=== PATIENT | male | born 1970 | race Caucasian/White ===

== ENCOUNTER 2019-11-21 07:51 | Outpatient (CLI) | payer BC ==
--- NOTE | 2019-11-21 09:34 | MRI ---
RIGHT ELBOW MRI WITHOUT IV CONTRAST: HISTORY: Rupture of right distal biceps tendon. FINDINGS: Right upper extremity pain following an injury. Multiplanar, multisequence MRI examination of the right elbow is performed. There is extensive abnormal signal and irregular thinning and evidence for partial tearing of the dis vitaly biceps tendon with some partial retraction. The short head portion of the tendon still appears t o be at least partially intact with complete tearing and retraction of the long-head portion of the t endon. There is some focal increased signal involving the undersurface of the common extensor tendon , evidence for partial thickness undersurface tearing. A small focus of interosseous cystic change i n the distal central subchondral portion of the radius. The ulnar collateral ligament is intact. La teral collateral ligament complex appears unremarkable. The triceps tendon appears unremarkable. Th e lacertus fibrosus appears intact, but shows evidence for sprain. IMPRESSION: Evidence for an incomplete distal biceps tendon tear with complete tearing and retraction of the long -head portion of the biceps tendon with an intact but somewhat thinned short head portion with an int act lacertus fibrosus. Evidence for of the undersurface interstitial tear of the common extensor tendon insertion region. Several small subchondral cystic foci of the distal central humerus. POS: RRE
== END 2019-11-21 07:52 | disposition home or self-care (01) ==
LOC: TBSIIMAG 07:51
PROVIDERS: ATTEND Orthopaedic Surgery
DX: S46.211A Strain of muscle, fascia and tendon of other parts of biceps, right arm, initial encounter (principal); R93.7 Abnormal findings on diagnostic imaging of other parts of musculoskeletal system

== ENCOUNTER 2019-12-08 05:17 | Outpatient (CLI) | payer BC, OTHER ==
[2019-12-08 11:22] LABS: #Eosinphils 0.1 thou/uL (0.0-0.7); #Lymphocytes 1.9 thou/uL (1.20-3.40); #Monocytes 0.6 thou/uL (0.11-0.59); %Basophils 0.2 % (0.0-1.0); %Eosinophils 0.9 % (0.0-10.0); %Lymphocytes 34.2 % (21.0-51.0); %Monocytes 10.6 % (0.0-10.0); %Neutrophils 54.1 % (42.0-75.0); Mean Corpuscular Hemoglobin 30.7 pg (27.0-31.0); Mean Corpuscular Volume 90.4 fL (78.0-98.0); Mean Platelet Volume 8.9 fL (7.4-10.4); Platelet Count 186 thou/uL (130-400); RBC Distribution Width 12.8 % (11.5-14.5); Red Blood Cell (RBC) Count 4.89 mill/uL (4.70-6.10); White Blood Cell (WBC) Count 5.5 thou/uL (4.8-10.8)
[2019-12-08 17:19] LABS: SARS-CoV-2 MS2 Positive; SARS-CoV-2 N Gene Negative; SARS-CoV-2 S Gene Negative; SARS-CoV-2 by NAA Not Detected (NotDetected); SARS-CoV-2 orf1ab Negative
== END 2019-12-08 05:18 | disposition home or self-care (01) ==
LOC: LABBT 05:17
PROVIDERS: ATTEND Orthopaedic Surgery
DX: Z01.812 Encounter for preprocedural laboratory examination (principal); Z11.59 Encounter for screening for other viral diseases; S46.211A Strain of muscle, fascia and tendon of other parts of biceps, right arm, initial encounter
CPT/HCPCS: 85025; 87635; U0003

== ENCOUNTER 2019-12-12 07:09 | Day surgery (SDC) | payer BC ==
[2019-12-06 10:47] VITALS: BMI 32.5
[2019-12-12] MEDS ORDERED: Fentanyl 100 MCG/2 ML VIAL ONE ×2 (07:44→10:05)
[2019-12-12] MEDS ORDERED: Midazolam HCl 2 mg/2 ml Vial ONE (07:44)
[2019-12-12] MEDS ORDERED: Dexamethasone 20 MG/5 ML VIAL ONE (10:54)
[2019-12-12] MEDS ORDERED: Lidocaine 1% PF 5 ML VIAL ONE (10:54)
[2019-12-12] MEDS ORDERED: Bupivacaine HCl 0.5%/Epinephrine 1:200,000/PF 30 ml Vial ONE (10:54)
[2019-12-12] MEDS ORDERED: EPHEDRINE 25 MG/5 ML SYRINGE ONE (10:54)
[2019-12-12] MEDS ORDERED: Ondansetron PF 4 MG/2 ML Vial ONE (10:54)
[2019-12-12] MEDS ORDERED: PROPOFOL 200 MG/20 ML VIAL ONE (10:54)
--- NOTE | 2019-12-13 09:50 | OP ---
DATE OF PROCEDURE: 12/12/2019 PREOPERATIVE DIAGNOSIS: Right distal biceps rupture, high-grade near full- thickness. POSTOPERATIVE DIAGNOSIS: Right distal biceps rupture, high-grade near full-thickness. PROCEDURE PERFORMED: Right distal biceps repair. MICROARRAY SPECIALIST: Indio Villa PA-C ANESTHESIOLOGIST: Archie George MD ANESTHESIA: The patient received LMA with interscalene block. ESTIMATED BLOOD LOSS: Less than 30 mL. TOURNIQUET TIME: 56 minutes at 250 mmHg. ANTIBIOTICS: Ancef 2 g. IMPLANTS: Arthrex distal biceps repair kit. COMPLICATIONS: None. HISTORY OF PRESENT ILLNESS: The patient is a 49-year-old male, who is a speech coach. I discussed the risks and benefits of right distal biceps repair to include, pain, scar, bleeding, infection, damage to vital structures to include nerves, arteries, vein, decreased range of motion and strength, need for further surgeries, failure of repair, loss of life or limb, potential risk of blood clots. I discussed that he may have some numbness in his forearm from a stretch of a nerve as well as potential posterior interosseous nerve palsy. I discussed the risks and benefits of surgery and the patient elected to proceed. DESCRIPTION OF PROCEDURE: Time-out was performed designating the patient's right upper extremity as the operative site based on site, consents, and marking. After time-out, the patient's right upper extremity was exsanguinated. Tourniquet was brought up and left for 56 minutes. Incision was made in line with volar approach to Michael down through skin. Dissected bluntly to retract the superficial, my financial services assistant lateral antebrachial cutaneous nerve laterally, came down between the cephalic and basilic vein with the cubital crossing branch. I cauterized it and exposed the distal biceps. I dissected down between the pronator and the brachioradialis, dissecting down, came down on the leash, followed the biceps to near its insertion, which had been peeled off of its origin. We completedthe tear. We pulled up the biceps into the wound. The patient's biceps was cleaned and sized down to an 8. My financial services assistant held the elly as we placed a FiberTape and passed 7 passes through and passed down the end of the needle. I placed homans on the neck directly on bone which my financial services assistant held. We then hyper-supinated the arm, placed in the pin, looked under fluoroscopic guidance to ensure it was within tuberosity, drilled bicortically, over-drilled, washed and cleaned out the site. We then passed the sutures of the FiberWire through the TightRope. We then placed the TightRope positioner and passed underneath the leash of Michael vessels that we left, as it flipped the button, pulled the tendon into place, passed smooth needles back through the tendon, placed in slight flexion, tied into place and sewed down the knots, passing under the leash of michael cut the sutures long to allow no irritation subcu. We washed, let the tourniquet down and controlled all bleeders. My financial services assistant closed subcu with 2-0 and skin with 3-0 nylon. The patient will be placed in a splint. Begin elbow and wrist range of motion. Follow up with me in 2 weeks. Job ID: [id number] [id number]
== END 2019-12-12 15:00 | disposition home or self-care (01) ==
LOC: SDC 07:09
PROVIDERS: ATTEND Orthopaedic Surgery
PROC: 3E0T3BZ Introduction of Anesthetic Agent into Peripheral Nerves and Plexi, Percutaneous Approach (ICD-10-PCS; principal; 2019-12-12)
PROC: 0LM30ZZ Reattachment of Right Upper Arm Tendon, Open Approach (ICD-10-PCS; principal; 2019-12-12)
DX: S46.211A Strain of muscle, fascia and tendon of other parts of biceps, right arm, initial encounter (principal); G89.18 Other acute postprocedural pain; Z87.891 Personal history of nicotine dependence; Z88.5 Allergy status to narcotic agent; X58.XXXA Exposure to other specified factors, initial encounter
CPT/HCPCS: 76000; C1713; J0670; J0690; J1100; J2250; J2405; J2704; J3010